=== PATIENT | female | born 1945 | race Caucasian/White ===

== ENCOUNTER 2017-01-07 06:06 | Day surgery (SDC) | payer MEDICARE ==
[2017-01-02 12:48] VITALS: BMI 35.4
[~2017-01-07 06:06] MED LIST: ALPRAZolam 0.25 MG TAB PO PRN; ALPRAZolam 0.5 MG TAB PO PRN; ASPIRIN 325 MG TAB PO STA; ATORVASTATIN 80 MG TAB PO STA; NITROGLYCERIN SL TABS 0.4 MG TAB SUBLINGUAL PRN; SODIUM CHLORIDE 0.9% 1,000 ML in EMPTY BAG 1 BAG IV ONE
[2017-01-07 07:09] LABS: Glucose,Whole Blood 214 mg/dL (75-99)
[2017-01-07 07:12] VITALS: PULSE 110; RESP 20; TEMP 95
[2017-01-07] MEDS ORDERED: INSULIN LISPRO (humaLOG) 300 UNIT/3 ML VIAL SQ ONE ×2 (07:14→07:21)
[2017-01-07] MEDS ORDERED: VERAPAMIL 2.5 MG/ML 2 ML AMP ONE (07:15)
[2017-01-07] MEDS ORDERED: LIDOCAINE 2% INJ 20 MG/ML (20 ML MDV) ONE (07:16)
[2017-01-07] MEDS ORDERED: fentaNYL (PF) 50 MCG/ML 2 ML AMP ONE (07:16)
[2017-01-07] MEDS ORDERED: fentaNYL (PF) 50 MCG/ML 2 ML AMP IV ONE (07:35)
[2017-01-07] MEDS ORDERED: HEPARIN SODIUM 1,000 UN/ML (10ML VL) ONE (07:37)
[2017-01-07] MEDS ORDERED: LIDOCAINE 2% INJ 20 MG/ML SQ ONE (07:41)
[2017-01-07] MEDS ORDERED: IV FLUID CONTINUATION 1,000 ML IV ONE (07:42)
[2017-01-07] MEDS: VERAPAMIL SYRINGE (5 MG/10 ML) INTRAARTER ONE ×2 (07:45→07:50)
[2017-01-07] MEDS ORDERED: MIDAZOLAM 2 MG/2 ML VIAL ONE (07:51)
[2017-01-07] MEDS ORDERED: MIDAZOLAM 2 MG/2 ML VIAL IVP ONE (07:52)
[2017-01-07] MEDS ORDERED: HEPARIN SODIUM 1,000 UN/ML (10ML VL) IV ONE (07:56)
[2017-01-07] MEDS ORDERED: IOHEXOL 350 MG/ML 125ML BOTTLE INJ ONE (08:01)
[2017-01-07] MEDS ORDERED: RX INFO: IV CONTRAST WAS GIVEN 1 EACH MISC MISCELLANE PRN (08:23)
[2017-01-07] MEDS ORDERED: CLOBETASOL PROP 0.05% CR 15GM TOPICAL PRN (08:24)
[2017-01-07] MEDS ORDERED: SODIUM CHLORIDE 0.9% 1,000 ML IV SCH (08:30)
[2017-01-07] MEDS ORDERED: ASCORBIC ACID 500 MG TAB PO SCH (09:00)
[2017-01-07] MEDS ORDERED: NON-FORMULARY DRUG (Ubidecarenone [Co Q-10] 100 MG) PO SCH (09:00)
[2017-01-07] MEDS ORDERED: MELOXICAM 7.5 MG TAB PO SCH (09:00)
[2017-01-07] MEDS ORDERED: NON-FORMULARY DRUG (Calcium Carbonate [Calcium] 1 TAB) PO SCH (09:00)
[2017-01-07] MEDS ORDERED: AMLODIPINE BESYLATE PO SCH (09:00)
[2017-01-07] MEDS ORDERED: NON-FORMULARY DRUG (Aspirin [Adult Low Dose Aspirin Ec] 81 MG) PO SCH (09:00)
[2017-01-07] MEDS ORDERED: NON-FORMULARY DRUG (Cranberry Fruit Extract [Cranberry] 200 MG) PO SCH (09:00)
[2017-01-07] MEDS ORDERED: [UNRECOGNIZED DRUG - OTHER] PO SCH (09:00)
[2017-01-07] MEDS ORDERED: GLIMEPIRIDE 2 MG TAB PO SCH (09:00)
[2017-01-07] MEDS ORDERED: ATORVASTATIN 20 MG TAB PO SCH (09:00)
[2017-01-07] MEDS ORDERED: BENAZEPRIL PO SCH (09:00)
[2017-01-07] MEDS ORDERED: MULTIVITAMINS, THERA 1 EACH TAB PO SCH (09:00)
--- NOTE | 2017-01-07 10:23 | CC ---
CARDIAC CATHETERIZATION REPORT Mrs. Real is a 71-year-old female with known history of hypertension, hyperlipidemia, diabetes mellitus, who recently has been complaining of dyspnea on exertion. Underwent a stress myocardial perfusion imaging that revealed evidence of apical ischemia. In view of that, recommendation made regarding cardiac catheterization. The procedures, risks and complications were discussed with the patient, who is in full understanding and agreement. PROCEDURE: Patient was brought to the [facility] in a fasting semi-sedated state after receiving fentanyl and Benadryl and achieving moderate conscious sedated state. She was draped and prepped in conventional fashion using Xylocaine anesthesia and Seldinger technique, a 6-Prydeinig sheath was introduced in the right radial artery. Selective right and left angiography performed using 5-Prydeinig 3.5 bend right and left Marlena catheter. Multiple views of the coronary artery and hemiaxial views obtained. Following that, 5- Prydeinig tight pigtail catheter was introduced into the left ventricle and a 30 degree WOOD view of the left ventricle obtained. Following that, catheter and sheaths were removed. Hemostasis was obtained with deployment of a TR band. There was no immediate complication. Patient is returned to her room in stable condition. Of note, patient received 4500 units of intravenous heparin as well as intra-arterial verapamil. FINDINGS: 1. LEFT MAIN: This is a short size vessel bifurcating into left circumflex, left anterior descending artery. Left main coronary artery is without any evidence of high-grade stenosis. 2. LEFT ANTERIOR DESCENDING ARTERY: This is a large-sized vessel reaching toward the apex with a wraparound apex segment giving rise to a moderately to large-sized diagonal branch proximally. The left anterior descending artery proximally has a 20% to 30% plaque, has another plaque in the mid segment of 30%. The diagonal branch has mild intimal disease without any evidence of high-grade stenosis. 3. LEFT CIRCUMFLEX: This is a nondominant, large-size vessel giving rise to four obtuse marginal branch. The third one is the largest in caliber. The left circumflex as well as branches have no evidence of significant obstructive coronary artery disease. 4. RIGHT CORONARY ARTERY: This is a large dominant vessel bifurcating distally in PDA, posterolateral segment and branches. The right coronary artery and its branches have no evidence of obstructive coronary artery disease. 5. LEFT VENTRICULOGRAM: Left ventriculogram is performed in 30 degree WOOD view and reveals normal left ventricular size and systolic function. Ejection fraction is 60%. There was no evidence of mitral regurgitation. 6. 7. HEMODYNAMICS: There was no gradient across the aortic valve. The left ventricular end-diastolic pressure was 10 to 12 mmHg. CONCLUSION: 1. 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 2. Normal left ventricular size and systolic function. RECOMMENDATION: 1. In view of finding anatomy, I would recommend to continue medical therapy with aggressive risk modifications being initiated. Those findings and recommendation were discussed with the patient and her family who are in full understanding and agreement. 2. Duration of the procedure 25 minutes. MMODL / IJN: [id number] /
--- NOTE | 2017-01-07 10:23 | LTR ---
DATE OF SERVICE: 01/07/2017 RE: Sarah Real Dear Dr. Akhtar; I had the pleasure to perform cardiac catheterization on Mrs Real at [facility] on January 07, 2017 and a full copy of the procedure note will be forwarded to you. In brief, she was found to have mild to moderate disease involving the proximal and mid LAD without any evidence of high-grade stenosis with a preserved ventricular size and systolic function, and based on those findings, I have recommended to continue medical therapy with aggressive risk modifications being initiated. Thank you again for allowing me to participate in this patient's care. Please feel free to call for any questions. Sincerely yours, MD TALON Shirley / CHELY: [id number] /
[2017-01-07] MEDS ORDERED: NITROGLYCERIN SL TABS 0.4 MG TAB SUBLINGUAL ONE (11:41)
[2017-01-07] MEDS ORDERED: HYDROmorphone 2 MG/ML 1 ML SYRINGE ONE (11:50)
[2017-01-07 12:55] LABS: Glucose,Whole Blood 153 mg/dL (75-99)
[2017-01-07 14:10] VITALS: BP 150/86
== END 2017-01-07 13:30 | disposition home or self-care (01) ==
LOC: CATHCVL 06:06
PROVIDERS: ATTEND Internal Medicine Interventional Cardiology
DX: I25.10 Atherosclerotic heart disease of native coronary artery without angina pectoris (principal); E78.00 Pure hypercholesterolemia, unspecified; I10 Essential (primary) hypertension; E11.9 Type 2 diabetes mellitus without complications; E78.2 Mixed hyperlipidemia; Z79.82 Long term (current) use of aspirin; Z79.899 Other long term (current) drug therapy; Z79.84 Long term (current) use of oral hypoglycemic drugs
CPT/HCPCS: 93458; C1894; C1769; J2001; J2250; J3010; J1644; Q9967